=== PATIENT | female | born 1980 | race Caucasian/White ===

== ENCOUNTER 2019-07-22 13:05 | Emergency (ER) | payer MEDICAID, OTHER, SELFPAY ==
[~2019-07-22] VITALS: Ht 170.2 cm; Wt 75.8 kg
[2019-07-22 13:18] VITALS: BP 128/65
--- NOTE | 2019-07-22 16:23 | NUR ---
Patient/Caregiver given discharge instructions and they have confirmed that they understand the instructions. Patient ambulatory with steady gait USING WALKER. PT LEFT WITH ALL PERSONAL BELONGINGS.
== END 2019-07-22 16:25 | disposition home or self-care (01) ==
LOC: ED 16:00
DX: M25.562 Pain in left knee (principal); F17.200 Nicotine dependence, unspecified, uncomplicated
CPT/HCPCS: 99283